=== PATIENT | female | born 1930 | race Caucasian/White ===

== ENCOUNTER → 2016-07-26 | Outpatient (CLI) | payer BC ==
[~2016-07-26] MED LIST: AREDS EYE OPB; DEXL60CA4; FIBER; FLUO20CA35 PO; HYDR-3419 PO; LEVO100T PO; LORA-741 PO; METO25TA56 PO; SENNTAB23; SIMV20TA5 PO
== END | disposition home or self-care (01) ==
LOC: C.LABSPEC 17:13
PROVIDERS: ATTEND Urology
DX: N39.0 Urinary tract infection, site not specified (principal)